=== PATIENT | male | born 1995 | race American Indian/Alaskan Native ===

== ENCOUNTER 2017-06-09 16:08 | Emergency (ER) | payer OTHER ==
--- NOTE | 2017-06-09 16:28 | ED PDOC ---
Arrival/HPI - General Time Seen by Provider: 06/09/17 16:26 Historian: Patient - History of Present Illness Narrative History of Present Illness (Text): 06/09/17 16:27 22 y/o male, no significant pmh, nkda, c/o throat pain started today. Aching pain, aggravated by swallowing, no coughing, no rash, no numbness or tingling, no other medical or psycholgoical complaints. Past Medical History - Provider Review Nursing Documentation Reviewed: Yes Family/Social History - Physician Review Nursing Documentation Reviewed: Yes Family/Social History: Unknown Family HX Allergies/Home Meds Allergies/Adverse Reactions: Allergies No Known Allergies Allergy (Verified 06/09/17 16:32) Review of Systems - Review of Systems Constitutional: absent: Fatigue, Fevers Eyes: absent: Vision Changes ENT: Sore Throat. absent: Hearing Changes, Rhinorrhea Respiratory: absent: SOB, Cough Cardiovascular: absent: Chest Pain Gastrointestinal: absent: Abdominal Pain, Nausea Skin: absent: Rash, Pruritis, Skin Lesions Psychiatric: absent: Anxiety, Depression Physical Exam Vital Signs Reviewed: Yes Vital Signs Temp Pulse Resp BP Pulse Ox 06/09/17 16:39 99.3 F 60 18 133/75 100 Temperature: Afebrile Blood Pressure: Normal Pulse: Regular Respiratory Rate: Normal Appearance: Positive for: Well-Appearing, Non-Toxic, Comfortable Pain Distress: Mild Mental Status: Positive for: Alert and Oriented X 3 - Systems Exam Head: Present: Atraumatic, Normocephalic Pupils: Present: PERRL Extroacular Muscles: Present: EOMI Conjunctiva: Present: Normal Ears: Present: NORMAL TM, Normal Canal. No: Erythema Mouth: Present: Moist Mucous Membranes Pharnyx: No: ERYTHEMA, EXUDATE, TONSILS ENLARGED, Uvular Deviation, Muffled/ Hoarse Voice, Soft Palate/Uvular Edema Nose (External): Present: Atraumatic. No: Abrasion, Contusion Nose (Internal): Present: Normal Inspection, No Active Bleeding. No: Rhinorrhea , Septal Hematoma, Epistaxis Neck: Present: Normal Range of Motion, Trachea Midline. No: MIDLINE TENDERNESS , Paraspinal Tenderness, Lymphadenopathy Respiratory/Chest: Present: Clear to Auscultation, Good Air Exchange. No: Respiratory Distress, Accessory Muscle Use Cardiovascular: Present: Regular Rate and Rhythm, Normal S1, S2. No: Murmurs Abdomen: Present: Normal Bowel Sounds. No: Tenderness, Distention, Peritoneal Signs Back: Present: Normal Inspection Upper Extremity: Present: Normal Inspection. No: Cyanosis, Edema Lower Extremity: Present: Normal Inspection. No: Edema Neurological: Present: GCS=15, Speech Normal, Motor Func Grossly Intact, Gait Normal, Memory Normal Skin: Present: Warm, Dry, Normal Color. No: Rashes Psychiatric: Present: Alert, Oriented x 3, Normal Insight, Normal Concentration Medical Decision Making ED Course and Treatment: 06/09/17 16:44 -rapid strept and rapid flu 06/09/17 17:48 -Rapid strept negative -Rapid flue is negative, clinical suspicious is high as this is flu peak season. -Discharge home with tamiflu, motrin, stay hydrated, bed rest, follow up with your own pmd and ENT within 2 days, return to the ER for any new or worsening signs or symptoms. - Lab Interpretations Lab Results: Lab Results 06/09/17 16:45: Influenza Typ A,B (EIA) Negative for flu a/b, Grp A Beta Strep Ag Negative - PA / OPERATION RESEARCH ANALYST / Resident Statement MD/DO has reviewed & agrees with the documentation as recorded. Disposition/Present on Arrival - Present on Arrival Any Indicators Present on Arrival: No History of DVT/PE: No History of Uncontrolled Diabetes: No Urinary Catheter: No History of Decub. Ulcer: No - Disposition Have Diagnosis and Disposition been Completed?: Yes Diagnosis: Throat pain Disposition: HOME/ ROUTINE Disposition Time: 16:44 Patient Plan: Discharge Condition: GOOD Additional Instructions: -Discharge home with tamiflu, motrin, stay hydrated, bed rest, follow up with your own pmd and ENT within 2 days, return to the ER for any new or worsening signs or symptoms. Prescriptions: Ibuprofen [Motrin] 600 mg PO QID PRN #24 tab PRN Reason: Other Oseltamivir Phosphate [Tamiflu] 75 mg PO BID #10 capsule Ref[place]: [facility] [place] - Follow up with primary Forms: WORK NOTE
[2017-06-09 16:33] VITALS: BMI 29.1
[2017-06-09 16:40] VITALS: RESP 18; TEMP 99.3; O2SAT 100
[2017-06-09 17:34] LABS: INFLUENZA A B NEGATIVE FOR FLU A/B (NEGATIVE)
[2017-06-09 18:10] VITALS: BP 128/74; PULSE 59
== END 2017-06-09 18:09 | disposition home or self-care (01) ==
LOC: ED 16:08
DX: R07.0 Pain in throat (principal)